=== PATIENT | female | born 1955 | race Caucasian/White ===

== ENCOUNTER 2019-03-15 07:53 | Day surgery (SDC) | payer MEDICAID ==
[~2019-03-15] VITALS: Ht 177.8 cm; Wt 86.4 kg
[~2019-03-15 07:53] MED LIST: EST1T PO; FAMO-128 PO; HYDR-4353 PO; LOVA20TA2 PO; PANT40TA4 PO
[2019-03-15 08:24] VITALS: BP 147/88
[2019-03-15] MEDS ORDERED: OMEP-297 PO (08:41)
[2019-03-15] MEDS ORDERED: ATOR10TA PO (08:43)
[2019-03-15] MEDS ORDERED: fentaNYL/PF 50MCG/1 ML 2ML syringe ONE (09:10)
[2019-03-15] MEDS ORDERED: MIDAZolam 5mg/5ml vial ONE (09:10)
[2019-03-15 10:15] VITALS: BP 128/84
[2019-03-15 10:25] VITALS: BP 137/67
[2019-03-15 10:35] VITALS: BP 159/84
[2019-03-15 10:45] VITALS: BP 144/72
== END 2019-03-15 10:50 | disposition home or self-care (01) ==
LOC: GI LAB 07:53
PROVIDERS: ATTEND Internal Medicine Gastroenterology
DX: K92.1 Melena (principal); K64.8 Other hemorrhoids; Z98.0 Intestinal bypass and anastomosis status
CPT/HCPCS: 45378; 99152; J2250; J3010; J7040; A4620

== ENCOUNTER → 2019-12-18 | Outpatient (CLI) | payer MEDICAID ==
[~2019-12-18] MED LIST changes: +ATOR10TA PO; -FAMO-128 PO; -HYDR-4353 PO; -LOVA20TA2 PO; +OMEP20CA15 PO; -PANT40TA4 PO
== END | disposition home or self-care (01) ==
LOC: RAD 09:34
PROVIDERS: ATTEND Family Medicine
DX: R13.10 Dysphagia, unspecified (principal)
CPT/HCPCS: 74220

== ENCOUNTER 2020-12-15 09:07 | Emergency (ER) | payer MEDICARE, MEDICAID | END 2020-12-15 11:21 | disposition left against medical advice (07) | LOC: ER 09:07 | DX: M79.2 Neuralgia and neuritis, unspecified (principal); Z53.21 Procedure and treatment not carried out due to patient leaving prior to being seen by health care provider ==

== ENCOUNTER 2022-10-05 22:42 | Emergency (ER) | payer MEDICARE, MEDICAID ==
[~2022-10-05] VITALS: Ht 177.8 cm; Wt 94.5 kg
[2022-10-05 22:56] VITALS: TEMP 97.5
[2022-10-05] MEDS ORDERED: ondansetron/PF 4mg/2ml inj IV ONE (23:00)
[2022-10-05] MEDS ORDERED: normal saline 1000ml 1,000 ML IV ONE (23:25)
[2022-10-05 23:35] LABS: ALANINE AMINOTRANSFERASE 23 U/L (12-78); ALBUMIN 4.2 G/DL (3.4-5.0); ALBUMIN/GLOBULIN RATIO 1.1 (1.1-1.5); ALKALINE PHOSPHATASE 85 IU/L (46-116); ANION GAP 15 (8-16); ASPARTATE AMINO TRANSFERASE 24 U/L (10-37); BILIRUBIN,TOTAL 0.4 MG/DL (0.1-1.0); BLOOD UREA NITROGEN 17 MG/DL (7-18); CALCIUM 10.3 MG/DL (8.5-10.1); CHLORIDE 104 MMOL/L (99-107); CREATININE 0.85 MG/DL (0.40-0.90); GLUCOSE 142 MG/DL (70-104); POTASSIUM 3.8 MMOL/L (3.5-5.1); SODIUM 143 MMOL/L (135-145); TOTAL CARBON DIOXIDE 24.2 MMOL/L (24-32); TOTAL PROTEIN 8.1 G/DL (6.4-8.2); eGFR 67 ML/MIN
[2022-10-05 23:41] LABS: BASOPHILS # (AUTO) 0.1 X10'3 (0-0.2); BASOPHILS % (AUTO) 0.7 % (0-1); EOSINOPHILS # (AUTO) 0.1 X10'3 (0-0.9); EOSINOPHILS % (AUTO) 0.6 % (0-6); HEMATOCRIT 45.6 % (35.0-45.0); LYMPHOCYTES # (AUTO) 1.4 X10'3 (1.1-4.8); LYMPHOCYTES % (AUTO) 10.8 % (21-51); MEAN CORPUSCULAR HEMOGLOBIN 29.2 PG (27.0-31.0); MEAN CORPUSCULAR HGB CONC 32.9 g/dL (33.0-36.5); MEAN CORPUSCULAR VOLUME 88.6 FL (78-98); MONOCYTES # (AUTO) 0.6 X10'3 (0-0.9); MONOCYTES % (AUTO) 4.6 % (2-12); NEUTROPHILS # (AUTO) 10.7 X10'3 (1.8-7.7); NEUTROPHILS % (AUTO) 83.3 % (42-75); PLATELET COUNT 339 X10'3 (140-440); RED BLOOD COUNT 5.15 X10'6 (4.20-5.60); WHITE BLOOD COUNT 12.8 X10'3 (4.5-11.0)
[2022-10-06] MEDS ORDERED: ONDA8TAB13 PO (02:47)
[2022-10-06 03:07] VITALS: BP 136/72; PULSE 74; RESP 18; O2SAT 96
== END 2022-10-06 03:09 | disposition home or self-care (01) ==
LOC: ER 22:42
DX: K56.7 Ileus, unspecified (principal); R10.84 Generalized abdominal pain; R11.2 Nausea with vomiting, unspecified; R42 Dizziness and giddiness; R07.89 Other chest pain; R06.02 Shortness of breath; R55 Syncope and collapse; E78.00 Pure hypercholesterolemia, unspecified; G89.29 Other chronic pain; Z90.710 Acquired absence of both cervix and uterus; Z90.49 Acquired absence of other specified parts of digestive tract; Z56.0 Unemployment, unspecified; Z72.89 Other problems related to lifestyle; Z79.899 Other long term (current) drug therapy
CPT/HCPCS: 36415; 71045; 74176; 80053; 83880; 84484; 85025; 93005; 96361; 96374; 99285; J2405; J7030

== ENCOUNTER 2024-01-10 07:10 | Outpatient (CLI) | payer MEDICARE, MEDICAID ==
[~2024-01-10] VITALS: Ht 176.5 cm; Wt 93.9 kg
[~2024-01-10 07:10] MED LIST changes: +ONDA-245 PO
[2024-01-10 07:40] LABS: TOTAL HEMOGLOBIN 15.5 G/dl (12.0-16.0)
[2024-01-10] MEDS ORDERED: albuterol 2.5 MG/3 ML nebule ONE (08:33)
[2024-01-10] MEDS: albuterol 2.5 MG/3 ML nebule NEB ONE (08:35)
[2024-01-10 08:36] VITALS: PULSE 70; RESP 16; O2SAT 99
[2024-01-10 08:48] VITALS: PULSE 67; RESP 18
== END 2024-01-10 23:59 | disposition home or self-care (01) ==
LOC: RT 07:10
PROVIDERS: ATTEND Student in an Organized Health Care Education/Training Program
DX: R05.3 Chronic cough (principal)
CPT/HCPCS: 85018; 94060; 94727; 94729; 94760

== ENCOUNTER 2024-03-12 10:54 | Outpatient (CLI) | payer MEDICARE, MEDICAID | END 2024-03-12 23:59 | disposition home or self-care (01) | LOC: RAD 10:54 | PROVIDERS: ATTEND Student in an Organized Health Care Education/Training Program | DX: G56.03 Carpal tunnel syndrome, bilateral upper limbs (principal); M89.8X8 Other specified disorders of bone, other site | CPT/HCPCS: 73130 ==

== ENCOUNTER 2024-03-18 08:26 | Outpatient (CLI) | payer MEDICARE, MEDICAID | END 2024-03-18 23:59 | disposition home or self-care (01) | LOC: RAD 08:26 | PROVIDERS: ATTEND Student in an Organized Health Care Education/Training Program | DX: Z12.2 Encounter for screening for malignant neoplasm of respiratory organs (principal) | CPT/HCPCS: 71271 ==

== ENCOUNTER 2024-07-20 10:30 | Emergency (ER) | payer MEDICARE, MEDICAID ==
[~2024-07-20] VITALS: Ht 175.3 cm; Wt 94.9 kg
[2024-07-20 10:49] VITALS: BP 135/69; PULSE 93; O2SAT 97
--- NOTE | 2024-07-20 12:41 | Physician Documentation ---
History of Present Illness ~ Chief Complaint: Hip pain Stated Complaint: SIDE PAIN Time Seen by MD: 10:54 Primary Medical Doctor: MIGUEL Boyle BIRK HPI Patient is seen today with complaints of acute on chronic low back pain as well as left-sided hip pain. Patient states she did just recently have an x-ray of her left hip just a few days ago that showed no acute findings. Patient does have an orthopedic traffic monitor specialist that she sees periodically and has an appointment coming up in September. Patient states he does take oxycodone 5 mg twice a day. Patient denies any saddle anesthesia or changes in bowel or bladder habits. Patient has no new or other concern or complaint at this time. Patient denies any chronic kidney or liver disease. 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 Patient History: (CABG) Coronary artery bypass grafting FATHER, , Age: 60 years and older, Onset:60 years & older (CAD) Coronary arteriosclerosis FATHER, , Age: 60 years and older, Onset:60 years & older ([place]) Myocardial infarction FATHER, , Age: 60 years and older, Onset:60 years & older Alcohol Use: Occasionally Drug Use: none Lives with: Family Lives In: Home Occupation: unemployed Review of Systems Constitutional: Denies: chills, fever, weakness Eyes: Denies: pain, blurred vision ENT: Denies: ear pain, nose pain, throat pain, mouth pain Respiratory: Denies: cough, shortness of breath Cardiovascular: Denies: chest pain, palpitations Gastrointestinal: Denies: abdominal pain, nausea, vomiting Genitourinary: Denies: burning, dysuria Female Genitalia: Denies: vaginal discharge, pelvic pain Neurological: Denies: headache, dizziness Musculoskeletal: Denies: pain, swelling Integumentary: Denies: rash, lesions Allergic/Immunologic: Denies: hives, itching Hematologic/Lymphatic: Denies: no symptoms reported Psychiatric: Denies: depression, anxiety Physical Exam Physical Exam Vital Signs: Temperature: 98.0, Heart Rate: 93, Respiratory Rate: 16, BP: 135/69, Pulse Oximetry: 97, Weight: 94.900 Oxygen Flow Rate: 0 Physical Exam General: Awake and Alert, no acute distress. HEENT: Conjunctiva pink, Sclera clear, Mucus Membranes moist. Neck: Supple without masses and tenderness. Resp: Unlabored. Lungs clear to auscultation bilaterally. Heart: Regular Rate and rhythm, normal S1 and S2 without murmur, rub or gallop. Musculoskeletal: Patient on exam does have significant tenderness to palpation almost seemingly out of proportion to exam of the greater trochanter of the left hip as well as the left lower lumbar spine paraspinous muscles. Patient is neurovascularly intact distally. Motor function is intact distally. Patient has significantly decreased range of motion of the lumbar spine. All planes of motion. Extremities: No cyanosis,clubbing or edema. Skin: Warm and Dry. Progress Results/Orders Results/Orders Vital Signs 07/20/24 10:49 Temp 98.0 Pulse 93 Resp 16 B/P (MAP) 135/69 Pulse Ox 97 O2 Flow Rate 0 Medical Decision Making Findings Patient is seen today with complaints of acute on chronic low back pain as well as left-sided hip pain. Patient states she did just recently have an x-ray of her left hip just a few days ago that showed no acute findings. Patient does have an orthopedic traffic monitor specialist that she sees periodically and has an appointment coming up in September. Patient states he does take oxycodone 5 mg twice a day. Patient denies any saddle anesthesia or changes in bowel or bladder habits. Patient has no new or other concern or complaint at this time. Patient was given dose of [place] 10/325 mg by mouth in the ED today. Toradol 30 mg IM given in the ED today. Baclofen 10 mg by mouth given in ED today. Patient will follow up with primary care as soon as possible and/or follow up with orthopedic traffic monitor specialist as soon as possible as well. Patient could definitely benefit from a referral to physical therapy. Departure Disposition: HOME / SELF CARE / HOMELESS ( ) Impression: Primary Impression: Trochanteric bursitis of left hip Additional Impression: Low back pain Qualified Codes: M54.50 - Low back pain, unspecified Condition: Improved Discharge Instructions: Arthritis, Nonspecific Additional Instructions: Patient was given dose of [place] 10/325 mg by mouth in the ED today. Toradol 30 mg IM given in the ED today. Baclofen 10 mg by mouth given in ED today. Patient will follow up with primary care as soon as possible and/or follow up with orthopedic traffic monitor specialist as soon as possible as well. Patient could definitely benefit from a referral to physical therapy. Referrals: NO PRIMARY CARE PROVIDER (PCP) Prescriptions Methocarbamol (Methocarbamol) 750 Mg Tablet 1 TAB PO Q8H for 30 Days, #90 TAB 0 Refills Prov: KAREN BRITO 07/20/24 Signature Scribe Signature: No scribe Attestation: No scribe KAREN BRITO July 20, 2024 12:40
[2024-07-20] MEDS ORDERED: METH-798 PO (12:44)
[2024-07-20] MEDS: baclofen 10mg tablet PO STA (13:21)
[2024-07-20 13:22] VITALS: RESP 16
[2024-07-20] MEDS: HYDROcodone/acetaminophen 10/325mg tab PO STA (13:22)
[2024-07-20] MEDS: ketorolac trometh 30MG/ML vial 30 MG/ML VIAL IM STA (13:22)
[2024-07-20 13:27] VITALS: TEMP 98
== END 2024-07-20 13:28 | disposition home or self-care (01) ==
LOC: ER 10:31
DX: M70.62 Trochanteric bursitis, left hip (principal); M54.50 Low back pain, unspecified; E78.00 Pure hypercholesterolemia, unspecified; Z90.49 Acquired absence of other specified parts of digestive tract; Z90.710 Acquired absence of both cervix and uterus; Z95.1 Presence of aortocoronary bypass graft
CPT/HCPCS: 96372; 99283; J1885

== ENCOUNTER 2025-02-25 08:59 | Outpatient (CLI) | payer MEDICARE, MEDICAID ==
[~2025-02-25 08:59] MED LIST changes: +METH-798 PO
--- NOTE | 2025-02-25 11:18 | RADIOLOGY REPORT ---
CLINICAL INDICATION: POSTCONCUSSIONAL SYNDROME COMPARISON: None TECHNIQUE: Multisequence multiplanar MRI images of the brain were obtained without contrast. FINDINGS: T2 star images are very limited due to motion artifact. No acute infarct or evidence of acute hemorrhage. No mass or midline shift. There is encephalomalacia in the anterior aspects of the frontal lobes bilaterally with associated volume loss and T2/FLAIR hyperintense signal. Scattered areas of T2/FLAIR hyperintense signal in the periventricular and subcortical white matter are nonspecific, but most likely sequelae of chronic small vessel ischemic disease. Ventricles and sulci are within normal limits for patient age. Basal cisterns are patent. Cerebellum, brainstem, and midline structures are within normal limits. Minimal mucosal thickening of the paranasal sinuses. There are bilateral lens prostheses. Orbits otherwise are grossly unremarkable. IMPRESSION: 1. No evidence of acute intracranial abnormality. 2. 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 3. Additional nonacute findings as described above.
== END 2025-02-25 23:59 | disposition home or self-care (01) ==
LOC: MRI02 08:59
PROVIDERS: ATTEND Physician Assistant
DX: G93.89 Other specified disorders of brain (principal); F07.81 Postconcussional syndrome; R47.01 Aphasia
CPT/HCPCS: 70551